=== PATIENT | female | born 1945 | race Caucasian/White ===

== ENCOUNTER 2017-10-02 07:21 | Day surgery (SDC) | payer MEDICARE, OTHER ==
[2017-10-02] MEDS ORDERED: ROCURONIUM BROMIDE 10 MG/ML SOL IV ONE (07:34)
[2017-10-02] MEDS ORDERED: SUCCINYLCHOLINE CHLORIDE 20 MG/ML SOL IV ONE (07:34)
[2017-10-02] MEDS ORDERED: FENTANYL 100MCG/2ML SOL ONE (07:37)
[2017-10-02] MEDS ORDERED: PROPOFOL 10 MG/ML EMU IV ONE (07:38)
[2017-10-02] MEDS ORDERED: LIDOCAINE HCL 1% MPF SOL ONE (07:38)
[2017-10-02] MEDS ORDERED: BUPIVACAINE LIPOSOME 20 ML SUS ONE (08:06)
[2017-10-02] MEDS ORDERED: EPHEDRINE SULFATE 50 MG/ML SOL ONE (08:47)
[2017-10-02] MEDS ORDERED: NALOXONE HYDROCHLORIDE 0.4 MG/ML SOL ONE (09:11)
[2017-10-02] MEDS ORDERED: KETOROLAC TROMETHAMINE 30 MG/ML SOL ONE (09:55)
[2017-10-02 10:10] VITALS: RESP 20; TEMP 97.5
[2017-10-02 10:39] VITALS: O2SAT 97
[2017-10-02 16:57] VITALS: BP 125/76; PULSE 60
== END 2017-10-02 11:50 | disposition home or self-care (01) | DRG 395 ==
LOC: SURG 07:21
PROVIDERS: ATTEND Surgery
DX: K64.8 Other hemorrhoids (principal); K62.3 Rectal prolapse
CPT/HCPCS: J0330; J1885; J2310; J3010; J2001; J2704

== ENCOUNTER 2018-08-09 19:23 | Emergency (ER) | payer OTHER, MEDICARE ==
[2018-08-09 19:43] VITALS: RESP 18
[2018-08-09] MEDS ORDERED: MORPHINE SULFATE 10 MG/ML SOL IV ONE ×2 (20:08→21:26)
[2018-08-09] MEDS ORDERED: ONDANSETRON HCL 4 MG/2 ML SOL IV ONE (20:08)
[2018-08-09] MEDS ORDERED: ONDANSETRON HCL 4 MG/2 ML SOL ONE (20:27)
[2018-08-09] MEDS ORDERED: MORPHINE SULFATE 10 MG/ML SOL ONE ×2 (20:27→21:27)
[2018-08-09 20:31] LABS: BASOPHILS % (AUTO) 1 % (0-3); EOSINOPHILS % (AUTO) 2 % (0-9); HEMATOCRIT 42 % (35-47); HEMOGLOBIN 14.4 gm/dl (12.0-15.5); LYMPHOCYTES % (AUTO) 22.7 % (10-50); MEAN CORPUSCULAR HEMOGLOBIN 31.2 pg (27.0-32.0); MEAN CORPUSCULAR HGB CONC 34.1 gm/dl (32.0-36.0); MEAN CORPUSCULAR VOLUME 91 fL (81-99); MONOCYTES % (AUTO) 6.3 % (0-12); NEUTROPHILS % (AUTO) 68.8 % (37-80)
[2018-08-09 20:35] LABS: INR 0.99 (0.86-1.12)
[2018-08-09 20:41] LABS: ALBUMIN 4.1 gm/dl (3.4-5.0); BILIRUBIN,TOTAL 0.3 mg/dl (0.2-1.0); CALCIUM 9.1 mg/dl (8.5-10.1); CARBON DIOXIDE 23.3 mEq/L (21-32); CREATININE 1.1 mg/dl (0.60-1.00); POTASSIUM 3.8 mMol/L (3.5-5.1); TOTAL PROTEIN 7.7 gm/dl (6.4-8.2)
[2018-08-10 00:04] VITALS: BP 100/60; PULSE 79; O2SAT 97
[2018-08-10 00:05] VITALS: TEMP 98.3
== END 2018-08-09 21:40 | disposition short-term general hospital (02) | DRG 536 ==
LOC: ED 19:23
DX: S72.001A Fracture of unspecified part of neck of right femur, initial encounter for closed fracture (principal); W19.XXXA Unspecified fall, initial encounter
CPT/HCPCS: 73502; 80053; 85025; 85610; 96374; 96375; 99283; 99285; J2270; J2405